=== PATIENT | female | born 1985 | race Caucasian/White ===

== ENCOUNTER 2016-10-15 17:41 | Day surgery (SDCO) | payer OTHER ==
[2016-10-15 18:33] LABS: HGB 12.8 g/dl (12.5-16.0); MCH 28.6 pg (25.0-31.0); MCHC 33.7 g/dL (32.0-36.0); MCV 84.8 fL (78.0-100.0); MPV 10.8 fL (6.0-9.5); RBC 4.48 M/uL (4.20-5.40); RDW 13.9 % (11.5-14.0); WBC 16.1 K/uL (4.0-10.5)
[2016-10-15 21:06] LABS: BILIRUBIN NEGATIVE (NEGATIVE); BLOOD NEGATIVE Ery/uL (NEGATIVE); CLARITY CLEAR (CLEAR); COLOR YELLOW (YELLOW); GLUCOSE (U) TRACE mg/dL (NORMAL); KETONE (U) 1+ (SMALL) mg/dL (NEGATIVE); LEUKOCYTES NEGATIVE Leu/uL (NEGATIVE); NITRITE NEGATIVE (NEGATIVE); PROTEIN NEGATIVE (NEGATIVE); SPECIFIC GRAVITY 1.025 (1.001-1.030); UROBILINOGEN 0.2 mg/dL (0.2-1.0)
== END 2016-10-15 21:30 | disposition home or self-care (01) ==
LOC: FOB 17:41
PROVIDERS: ADMIT Obstetrics & Gynecology
DX: O41.03X0 Oligohydramnios, third trimester, not applicable or unspecified (principal); Z3A.36 36 weeks gestation of pregnancy
CPT/HCPCS: 36415; 81003; G0378

== ENCOUNTER 2016-10-21 15:21 | Day surgery (SDCO) | payer OTHER ==
[2016-10-21 16:07] LABS: HGB 13.6 g/dl (12.5-16.0); MCH 28.6 pg (25.0-31.0); MPV 10.5 fL (6.0-9.5); RBC 4.76 M/uL (4.20-5.40); RDW 14.3 % (11.5-14.0); WBC 14.2 K/uL (4.0-10.5)
[2016-10-21 16:46] LABS: ALBUMIN 3.9 g/dL (3.5-5.0); BILIRUBIN - TOTAL 0.2 mg/dL (0.1-1.0); CREATININE 0.6 mg/dL (0.5-1.0); GLOBULIN (CALCULATION) 2.2 g/dL (2.2-4.2); POTASSIUM 3.8 mmol/L (3.5-5.1); TOTAL PROTEIN 6.1 g/dL (6.4-8.3); URIC ACID 4.4 mg/dL (2.4-5.7)
== END 2016-10-22 11:00 | disposition home or self-care (01) ==
LOC: FOB 15:21
PROVIDERS: ADMIT Obstetrics & Gynecology
DX: O41.03X0 Oligohydramnios, third trimester, not applicable or unspecified (principal); Z3A.36 36 weeks gestation of pregnancy; O99.213 Obesity complicating pregnancy, third trimester; Z88.1 Allergy status to other antibiotic agents; Z91.040 Latex allergy status; Z91.09 Other allergy status, other than to drugs and biological substances; Z98.890 Other specified postprocedural states; Z90.49 Acquired absence of other specified parts of digestive tract; Z82.49 Family history of ischemic heart disease and other diseases of the circulatory system
CPT/HCPCS: 36415; 76805; 80053; 83615; 84550; G0378

== ENCOUNTER 2016-10-24 16:06 | Inpatient (IN) | payer OTHER ==
[2016-10-24 17:20] LABS: BILIRUBIN NEGATIVE (NEGATIVE); BLOOD 2+ Ery/uL (NEGATIVE); COLOR YELLOW (YELLOW); GLUCOSE (U) NORMAL (NORMAL); KETONE (U) NEGATIVE (NEGATIVE); LEUKOCYTES TRACE Leu/uL (NEGATIVE); NITRITE NEGATIVE (NEGATIVE); PROTEIN NEGATIVE (NEGATIVE); UROBILINOGEN 0.2 mg/dL (0.2-1.0); pH 6.5 (5.0-9.0)
[2016-10-24 17:22] LABS: CLARITY HAZY (CLEAR)
[2016-10-24 17:35] LABS: HCT 39.4 % (37.0-47.0); HGB 13.5 g/dl (12.5-16.0); MCH 28.8 pg (25.0-31.0); MCHC 34.3 g/dL (32.0-36.0); MCV 84.2 fL (78.0-100.0); MPV 10.6 fL (6.0-9.5); RBC 4.68 M/uL (4.20-5.40); RDW 14.3 % (11.5-14.0); WBC 15.6 K/uL (4.0-10.5)
[2016-10-24 17:42] LABS: BACTERIA TRACE
[2016-10-24 17:42] LABS: ALBUMIN 3.4 g/dL (3.5-5.0); BILIRUBIN - TOTAL 0.2 mg/dL (0.1-1.0); CREATININE 0.5 mg/dL (0.5-1.0); GLOBULIN (CALCULATION) 2.6 g/dL (2.2-4.2); POTASSIUM 4.1 mmol/L (3.5-5.1)
[2016-10-25 11:53] LABS: HCT 35.5 % (37.0-47.0); HGB 12.1 g/dl (12.5-16.0); MCH 28.9 pg (25.0-31.0); MCHC 34.1 g/dL (32.0-36.0); MCV 84.7 fL (78.0-100.0); MPV 10.4 fL (6.0-9.5); RBC 4.19 M/uL (4.20-5.40); RDW 14.6 % (11.5-14.0); WBC 21.1 K/uL (4.0-10.5)
== END 2016-10-26 23:30 | disposition home or self-care (01) | DRG 775 ==
LOC: FOD 16:06 → FOB 16:07 → FOD 16:29 → FOB 16:30
PROVIDERS: ADMIT Obstetrics & Gynecology
PROC: 10E0XZZ Delivery of Products of Conception, External Approach (ICD-10-PCS; principal; 2016-10-24)
PROC: 0KQM0ZZ Repair Perineum Muscle, Open Approach (ICD-10-PCS; 2016-10-24)
PROC: 4A1HX4Z Monitoring of Products of Conception, Cardiac Electrical Activity, External Approach (ICD-10-PCS; 2016-10-24)
DX: O70.1 Second degree perineal laceration during delivery (principal); Z37.0 Single live birth; E66.9 Obesity, unspecified; O99.214 Obesity complicating childbirth; O99.824 Streptococcus B carrier state complicating childbirth; Z3A.38 38 weeks gestation of pregnancy; Z91.040 Latex allergy status
CPT/HCPCS: 36415; 80053; 81001; J2300